=== PATIENT | male | born 1970 | race Caucasian/White ===

== ENCOUNTER 2023-04-18 16:36 | Emergency (ER) | payer BC ==
[2023-04-18] MEDS: Ketorolac 60 MG/2 ML SDV IM ONE (17:50)
[2023-04-18] MEDS: HYDROmorphone 1 MG/ML Syringe IM ONE (17:50)
== END 2023-04-18 18:45 | disposition home or self-care (01) ==
LOC: JD.ED 16:36
DX: M54.42 Lumbago with sciatica, left side (principal)
CPT/HCPCS: 72100; 96372; 99283; J1170; J1885

== ENCOUNTER 2024-05-02 06:42 | Day surgery (SDC) | payer BC ==
[~2024-05-02 06:42] MED LIST: Sodium Chloride 0.9% 10 ML Syringe FLUSH PRN; Sodium Chloride 0.9% 10 ML Syringe FLUSH SCH
[2024-05-02] MEDS: Lactated Ringers 1,000 ML IV SCH (07:00)
[2024-05-02] MEDS ORDERED: Propofol 200 MG/20 ML SDV ONE ×2 (07:02→07:15)
[2024-05-02] MEDS ORDERED: Lidocaine 1% 4 ML ONE (07:03)
== END 2024-05-02 08:03 | disposition home or self-care (01) ==
LOC: JD.SDS 06:42
PROVIDERS: ATTEND Surgery
DX: Z12.11 Encounter for screening for malignant neoplasm of colon (principal); K57.30 Diverticulosis of large intestine without perforation or abscess without bleeding; K64.8 Other hemorrhoids; E78.00 Pure hypercholesterolemia, unspecified; I10 Essential (primary) hypertension; Z79.899 Other long term (current) drug therapy
CPT/HCPCS: 00812; J2704; J7120